=== PATIENT | female | born 1995 | race African-American/Black ===

== ENCOUNTER → 2016-07-03 | Outpatient (CLI) | payer OTHER ==
[~2016-07-03] MED LIST: ADDE20XR PO; ALBUAER3 INH; BUPR300T PO; DEPO150I IM; FERR1TAB36 PO; FLUO40CA PO; TRAZ50TA12 PO
[2016-07-03 09:29] LABS: HEMATOCRIT 37.1 % (35.0-46.0); MEAN CELL VOLUME 90.4 FL (80.0-100.0); MEAN CORPUSCULAR HEMOGLOBIN 30.5 PG (27.0-34.0); MEAN CORPUSCULAR HGB CONC 33.7 % (32.0-36.0); PLATELET COUNT 207 TH/MM3 (150-450); RED CELL DISTRIBUTION WIDTH 12.6 % (11.6-17.2); REVIEW FLAG FINAL; WHITE BLOOD COUNT 4.2 TH/MM3 (4.0-11.0)
[2016-07-03 09:43] LABS: ANION GAP 6 MEQ/L (5-15); AST (GOT) 8 U/L (15-37); BICARBONATE 24.7 MEQ/L (21.0-32.0); BLOOD UREA NITROGEN 8 MG/DL (7-18); CHLORIDE 108 MEQ/L (98-107); GLOMERULAR FILTRATION RATE 125 ML/MIN (>89); GLUCOSE,FASTING 87 MG/DL (74-99); POTASSIUM 3.9 MEQ/L (3.5-5.1); SODIUM (NA) 139 MEQ/L (136-145)
[2016-07-03 09:54] LABS: ALKALINE PHOSPHATASE 76 U/L (45-117); ALT (GPT) 11 U/L (10-53); BETA HCG QUANT LESS THAN 1 MIU/ML (0-5); HDL CHOLESTEROL 86.5 MG/DL (40.0-60.0); LDL CHOLESTEROL 59 MG/DL (0-99); TOTAL BILIRUBIN ADULT 0.7 MG/DL (0.2-1.0)
== END ==
LOC: CLAB 08:46
PROVIDERS: ATTEND Physician Assistant Medical
DX: J45.909 Unspecified asthma, uncomplicated (principal); F90.9 Attention-deficit hyperactivity disorder, unspecified type; Z30.09 Encounter for other general counseling and advice on contraception
CPT/HCPCS: 36415; 80053; 80061; 84443; 84702; 85027

== ENCOUNTER 2017-05-20 16:51 | Emergency (ER) | payer SELFPAY ==
[~2017-05-20 16:51] MED LIST changes: -ADDE20XR PO; -FERR1TAB36 PO; +FERR325T18 PO
[2017-05-20 16:53] VITALS: BP 116/79; PULSE 102; RESP 16; TEMP 98; O2SAT 99
[2017-05-20 17:23] VITALS: PULSE 88; RESP 20
--- NOTE | 2017-05-20 17:32 | PD ---
HPI Chief Complaint: Oral / Dental Pain or Problem Time Seen by Provider: 17:16 Travel History International Travel<30 days: No Contact w/Intl Traveler<30days: No Traveled to known affect area: No History of Present Illness HPI 22-year-old female presents to the emergency room for evaluation of wisdom tooth pain. States pain is ongoing for the past several months but over the past few weeks it has worsened. She has been taking Aleve and ibuprofen with minimal relief in symptoms. Pain is the worst in the right upper wisdom tooth but present in all 4 teeth. She cannot get into a dentist until June when her insurance kicks in. She denies fever, chills, nausea, vomiting, or drainage. History Past Medical Histgory LMP: irreg on depo Social History Alcohol Use: No Tobacco Use: No Allergies-Medications (Allergen,Severity, Reaction): Coded Allergies: cetylpyridinium chloride (Unverified Allergy, Severe, 01/26/17) Reported Meds & Prescriptions Reported Meds & Active Scripts Active Depo-Provera Inj (Medroxyprogesterone Inj) 150 Mg/Ml Inj 150 Mg IM Q90D Proair Hfa 8.5 GM Inh (Albuterol Sulfate) 90 Mcg/Act Aer 2 Puff INH BID PRN 108 mcg/actuation Reported Ferrous Sulfate 325 Mg (65 Mg Iron) Tablet 325 Mg PO DAILY Fluoxetine (Fluoxetine HCl) 40 Mg Cap 40 Cap PO DAILY Trazodone (Trazodone HCl) 50 Mg Tab 50 Mg PO HS Bupropion HCl ER 24 HR (Bupropion HCl) 300 Mg Tab 300 Mg PO DAILY Review of Systems Except as stated in HPI: all other systems reviewed are Neg Physical Exam Narrative GENERAL: Well-nourished, well-developed female in no acute distress. Afebrile. Ambulatory. SKIN: Focused skin assessment warm/dry. HEAD: Normocephalic. EYES: No scleral icterus. No injection or drainage. NECK: Supple, trachea midline. No JVD or lymphadenopathy. DENTAL: No loose or chipped teeth. No malocclusion. Tenderness to palpation of all 4 wisdom teeth. No edema, drainage, erythema. Data Data Last Documented VS Vital Signs Date Time Temp Pulse Resp B/P (MAP) Pulse Ox O2 Delivery O2 Flow Rate FiO2 05/20/17 17:23 88 20 Room Air 05/20/17 16:53 98.0 99 MDM Medical Screen Exam Complete: Yes Emergency Medical Condition: No Differential Diagnosis dentalgia Narrative Course 22 year-old female presents to the emergency room for evaluation of bilateral upper and lower wisdom teeth pain for the past several months that has been worsening. Patient cannot get into her dentist until June. She has been taking Motrin and Aleve without relief in symptoms. Physical exam reveals no signs of infection. Patient has dentalgia from wisdom teeth eruption. Her mouth is very small so I suspect that contributes to her pain. She was told to take 600-800 mg ibuprofen was 650 mg Tylenol every 8 hours and follow up with a dentist. There are no urgent or emergent medical conditions this time. A medical screening exam was performed: At the time of evaluation the presenting medical condition was determined not to be of an emergent nature. The patient was given the option of receiving additional care, but declined. Patient was given options for additional community resources from which to obtain care. The Patient Has Been advised to seek medical attention for their presenting complaint. The patient has been advised to return to the ER at any time if an emergent condition develops. Primary Impression: Encounter for medical screening examination Disposition: 01 DISCHARGE HOME Condition: Stable Cleo Alberts May 20, 2017 17:32
[2017-06-03] MEDS ORDERED: DEPO150I IM (15:23)
[2017-06-03] MEDS ORDERED: FLU60SYR19 IM (15:30)
== END 2017-05-20 17:28 | disposition left against medical advice (07) ==
LOC: NEPK 16:51
DX: K08.89 Other specified disorders of teeth and supporting structures (principal)
CPT/HCPCS: 99281

== ENCOUNTER 2017-05-31 09:08 | Emergency (ER) | payer OTHER ==
[~2017-05-31] VITALS: Ht 165.1 cm; Wt 58.0 kg
[2017-05-31 09:11] VITALS: BP 134/84; PULSE 99; RESP 14; TEMP 98.3; O2SAT 98
[2017-05-31] MEDS ORDERED: QUET1TAB7 PO (09:30)
[2017-05-31] MEDS ORDERED: ATOM40 PO (09:30)
[2017-05-31] MEDS ORDERED: IBUP1TAB7 PO (09:53)
[2017-05-31] MEDS ORDERED: PENI500T PO (09:53)
--- NOTE | 2017-05-31 09:53 | PD ---
HPI Chief Complaint: Oral / Dental Pain or Problem Time Seen by Provider: 09:24 Travel History International Travel<30 days: No Contact w/Intl Traveler<30days: No Traveled to known affect area: No History of Present Illness HPI 22-year-old female here with left lower dental pain and gum swelling 3 days. Patient reports she's had widespread dental pain for the last several months. She denies fever or chills. She is awaiting a dental appointment in early June. Pain is constant, throbbing, aggravated by eating and drinking. No alleviating factors. Symptoms severity is mild. PFSH Past Medical History ADHD: Yes (ADHD) Asthma: Yes Cardiovascular Problems: No Diabetes: No Diminished Hearing: No Gastrointestinal Disorders: Yes (CONSTIPATION ) Psychiatric: Yes (ODD) Immunizations Current: Yes Migraines: No Seizures: No Thyroid Disease: No Ulcer: No Tetanus Vaccination: < 5 Years ?: Not : 0 Past Surgical History Other Surgery: Yes (MULTIPLE PALATE TRACH) Social History Alcohol Use: No Tobacco Use: No Substance Use: No Allergies-Medications (Allergen,Severity, Reaction): Coded Allergies: cetylpyridinium chloride (Unverified Allergy, Severe, 05/31/17) Reported Meds & Prescriptions Reported Meds & Active Scripts Active Depo-Provera Inj (Medroxyprogesterone Inj) 150 Mg/Ml Inj 150 Mg IM Q90D Proair Hfa 8.5 GM Inh (Albuterol Sulfate) 90 Mcg/Act Aer 2 Puff INH BID PRN 108 mcg/actuation Reported Quetiapine (Quetiapine Fumarate) 25 Mg Tab 25 Mg PO HS Strattera (Atomoxetine HCl) 40 Mg Cap 40 Mg PO DAILY Ferrous Sulfate 325 Mg (65 Mg Iron) Tablet 325 Mg PO DAILY Fluoxetine (Fluoxetine HCl) 40 Mg Cap 40 Cap PO DAILY Bupropion HCl ER 24 HR (Bupropion HCl) 300 Mg Tab 300 Mg PO DAILY Review of Systems Except as stated in HPI: all other systems reviewed are Neg General / Constitutional: No: Fever Physical Exam Narrative GENERAL: Alert well-appearing female SKIN: Warm and dry. HEAD: Normocephalic. EYES: No injection or drainage. MOUTH: Widespread dental decay. Left lower premolar decayed and fractured with surrounding gum erythema. Uvula is midline. Airway is patent. NECK: Supple, trachea midline. No lymphadenopathy. CARDIOVASCULAR: Regular rate and rhythm RESPIRATORY: Breath sounds equal bilaterally. No accessory muscle use. Data Data Last Documented VS Vital Signs Date Time Temp Pulse Resp B/P (MAP) Pulse Ox O2 Delivery O2 Flow Rate FiO2 05/31/17 09:11 98.3 99 14 134/84 (101) 98 MDM Medical Decision Making Medical Screen Exam Complete: Yes Emergency Medical Condition: Yes Differential Diagnosis Dental caries, dental abscess, periodontal disease, dentalgia from wisdom tooth eruption Narrative Course 22-year-old female here with left lower dental pain and gum swelling 3 days. Patient also complaining of widespread dentalgia. On exam she has widespread dental decay. Left lower premolar is decayed and fractured with mild amount of gum erythema. Patient is well-appearing. Vital signs are stable. She is afebrile. She'll be treated with antibiotics and instructed to follow-up with her dentist. Diagnosis Primary Impression: Dental infection Referrals: Dentist Additional Instructions: Follow-up with her dentist. Take [id number] Tylenol as needed for pain. Scripts Penicillin V Potassium (Penicillin V Potassium) 500 Mg Tab 500 MG PO Q6H for Infection for 7 Days, #28 TAB 0 Refills Prov: Quita Sewell 05/31/17 Ibuprofen (Ibuprofen) 800 Mg Tab 800 MG PO Q6HR Y for PAIN, #40 TAB 0 Refills Prov: Quita Sewell 05/31/17 Disposition: 01 DISCHARGE HOME Condition: Stable Quita Sewell May 31, 2017 09:53
[2017-06-03] MEDS ORDERED: DEPO150I IM (15:23)
[2017-06-03] MEDS ORDERED: FLU60SYR19 IM (15:30)
== END 2017-05-31 10:01 | disposition home or self-care (01) ==
LOC: NEPK 09:08
DX: K04.7 Periapical abscess without sinus (principal)
CPT/HCPCS: 99284